=== PATIENT | female | born 1970 | race Caucasian/White ===

== ENCOUNTER 2022-02-06 00:29 | Day surgery (SDC) | payer BC, SELFPAY ==
[2022-01-19 13:49] VITALS: BMI 48.4
[2022-02-06 08:56] VITALS: BP 147/82; PULSE 88; RESP 18; TEMP 36.4; O2SAT 100
[2022-02-06] MEDS: LACTATED RINGERS 1,000 ML 150 ML IV CONT (09:09)
--- NOTE | 2022-02-06 09:13 | PM.HPGS ---
History of Present Illness History of Present Illness Consent: Risks, benefits, and alternatives have been discussed and questions answered. Patient agrees to proceed with procedure. Chief complaint: neoplasm screening Narrative: Deb Parnell is a 51 year old female referred for colon cancer screening. Review of Systems Review of Systems: All systems reviewed & are unremarkable except as noted in HPI and below PMFSH Past Medical History Medical History Kidney stones Surgical History Surgical History H/O gastric bypass History of cholecystectomy History of lithotripsy Family History Family History Other Cancer Diabetes mellitus Heart disease Hypertension Tuberculosis Social History Social History Smoking status: Former smoker Alcohol intake: current Alcohol use details: Rarely Living arrangements: with family Spiritual care concerns: No Meds Home Medications and Allergies Home Medications Medication Instructions Recorded Confirmed Type No Home Medications 01/05/22 02/06/22 History Allergies Allergy/AdvReac Type Severity Reaction Status Date / Time No Known Allergies Allergy Verified 02/06/22 08:55 Vital Signs Vital Signs - 24 hr 02/06/22 08:56 Temperature 36.4 C Pulse Rate 88 Respiratory Rate 18 Blood Pressure 147/82 H Pulse Oximetry 100 Oxygen Delivery Room Air Exam Const: General: alert Orientation/consciousness: patient oriented x3 Resp: Auscultation: clear to auscultation bilaterally Cardio: Rhythm: regular rhythm GI: GI Palp: Yes Soft to palpation and No Tenderness to palpation present (GI) Neuro: General: patient oriented x3 Assessment and Plan Assessment and plan (1) Colon cancer screening: Code(s): Z12.11 - Encounter for screening for malignant neoplasm of colon Status: Acute Assessment and Plan: Colonoscopy with possible biopsy or polypectomy or cautery or injection of substances.
--- NOTE | 2022-02-06 09:50 | WPDANESEPPF ---
Anes - Initial Pre Proc Eval Procedure: Operation Date: 02/06/22 10:00 Proposed Procedures p Screening Colonoscopy - Twan Giron MD Date/Time: 02/06/22 09:50 Surgeon: Twan Giron MD Pre Op Diagnosis: neoplasm screening Patient Data Age: 51 Gender: F Height: 1.65 m Weight: 129.3 kg Last Vital Signs Temp 97.6 F 02/06/22 08:56 Pulse 88 02/06/22 08:56 Resp 18 02/06/22 08:56 BP 147/82 H 02/06/22 08:56 Pulse Ox 100 02/06/22 08:56 O2 Del Method Room Air 02/06/22 08:56 Allergies Allergy/AdvReac Type Severity Reaction Status Date / Time No Known Allergies Allergy Verified 02/06/22 08:55 Home Medications Medication Instructions Recorded Confirmed Type No Home Medications 01/05/22 02/06/22 History Patient hx anesthesia problems: none Family hx anesthesia problems: none Results Review: All pre-operative results and documents have been reviewed as part of the pre-operative evaluation. [facility] Past Medical History Medical History Kidney stones Surgical History Surgical History H/O gastric bypass History of cholecystectomy History of lithotripsy Family History Family History Other Cancer Diabetes mellitus Heart disease Hypertension Tuberculosis Social History Social History Smoking status: Former smoker Alcohol intake: current Alcohol use details: Rarely Living arrangements: with family Spiritual care concerns: No Anes - Eval Final PreProcedure Day of Procedure 02/06/22 09:50 Patient weight: obese Heart: regular rate and rhythm Lungs: clear to auscultation Airway: Mallampati scale class II Neurological: alert and oriented Last oral intake: >/= 8 hours ASA classification: III Emergent: no Anesthetic plan: proceed Anesthesia type and monitoring: general GIVS and standard monitoring Results Review: All pre-operative results and documents have been reviewed as part of the pre-operative evaluation. Informed Consent: The patient's anesthetic plan and its attendant risks and benefits were discussed with the patient/family/POA. Questions were solicited and answers provided to the satisfaction of the patient/family/POA.
[2022-02-06 10:13] VITALS: BP 122/79; PULSE 80; RESP 16; O2SAT 100
[2022-02-06 10:23] VITALS: BP 125/83; PULSE 79; RESP 15; O2SAT 100
[2022-02-06 10:33] VITALS: BP 146/90; PULSE 80; RESP 18; O2SAT 100
== END 2022-02-06 10:47 | disposition home or self-care (01) ==
PROVIDERS: PCP Nurse Practitioner Family; Visit Provider Internal Medicine Gastroenterology
PROC: 0DJD8ZZ Inspection of Lower Intestinal Tract, Via Natural or Artificial Opening Endoscopic (ICD-10-PCS; CPT 45378; principal; 2022-02-06 10:00)
DX: Z12.11 Encounter for screening for malignant neoplasm of colon (principal); Z80.0 Family history of malignant neoplasm of digestive organs; Z98.84 Bariatric surgery status; Z87.891 Personal history of nicotine dependence
CPT/HCPCS: 45378; J2704; J7120

== ENCOUNTER 2022-08-06 18:52 | Emergency (ER) | payer BC, SELFPAY ==
--- NOTE | 2022-08-06 18:55 | ED.EXTPRO ---
HPI - Extremity Problem General Chief complaint: Skin/Abscess/Foreign Body Stated complaint: Swelling Rt Forearm Time Seen by Provider: 08/06/22 19:00 Source: patient, RN notes reviewed and old records reviewed Mode of arrival: ambulatory Limitations: no limitations History of Present Illness HPI Narrative: 52-year-old female presents to the [facility] with swelling in she noted to the proximal right forearm approximately 15 minutes prior to arrival. Patient states that she was caring rocks today, while she was washing up noticed the swelling. Swelling is localized, bruise noted to the proximal aspect of the forearm. No swelling to the distal aspect. Full range of motion of the elbow and the wrist. Positive radial pulse, capillary refill under 2 seconds, sensation intact in all 5 fingers Onset (ago): minute(s) (15) Related Data Home Medications Medication Instructions Recorded Confirmed No Home Medications 01/05/22 08/06/22 Allergies Allergy/AdvReac Type Severity Reaction Status Date / Time No Known Allergies Allergy Verified 08/06/22 19:06 Review of Systems Review of Systems: All systems reviewed & are unremarkable except as noted in HPI and below Constitutional: Constitutional: Reports no additional constitutional complaints Eyes: Eyes: Reports no additional eye complaints ENT: Reports system reviewed and no additional complaints, except as documented Cardiovascular: Cardiovascular: Reports no additional cardiovascular complaints, Denies chest pain and Denies dyspnea Respiratory: Respiratory: Reports no additional respiratory complaints, Denies chest congestion, Denies cough and Denies dyspnea Gastrointestinal: Gastrointestinal: Reports no additional gastrointestinal complaints, Denies abdominal pain, Denies nausea and Denies vomiting Musculoskeletal: Musculoskeletal: Reports as per HPI Integumentary/Breasts: Skin/Breast: Reports system reviewed and no additional complaints, except as docu Neurologic: Reports system reviewed and no additional complaints, except as documented Psychiatric: Psychiatric: Reports no additional psychiatric complaints Allergic/Immunologic: Allergic/Immunologic: Reports no additional allergic/immunologic complaints PMFSH Past Medical History Medical History Kidney stones Surgical History Surgical History H/O gastric bypass History of cholecystectomy History of lithotripsy Family History Family History Other Cancer Diabetes mellitus Heart disease Hypertension Tuberculosis Social History Social History Smoking status: Former smoker Alcohol intake: current Alcohol use details: Rarely Living arrangements: with family Spiritual care concerns: No Comments At the time of my signature, I reviewed and agree with the nursing past medical, surgical, social, and family history. There is no relevant family history pertinent to the patient complaint. Exam Const: General: cooperative, healthy appearing, comfortable, no acute distress, well developed, alert and well nourished Nutritional Appearance: well nourished Orientation/consciousness: patient oriented x3 Limitations: no limitations HENMT: Head: normal to inspection Ears: hearing grossly normal bilaterally and external ears normal Face/Nose/Sinus: Normal external nose present, Normal nares present, Normal nasal mucous membranes and turbinates present and normal facial exam Face and sinus: normal facial exam Mouth: Yes Normal oral and palatal mucosa present, Yes lip normal and Yes moist mucous membranes Eyes: General: appearance normal, both eyes and all related structures Alignment and Position: alignment normal Periorbital: periorbital findings normal Conjunctivae: conjunctivae n
[2022-08-06 18:59] VITALS: BP 151/87; PULSE 106; RESP 16; TEMP 36.3; O2SAT 100
== END 2022-08-06 19:15 | disposition home or self-care (01) ==
PROVIDERS: Emergency Provider Nurse Practitioner; PCP Nurse Practitioner Family
DX: S50.11XA Contusion of right forearm, initial encounter (principal); X58.XXXA Exposure to other specified factors, initial encounter; Z98.84 Bariatric surgery status; Z87.891 Personal history of nicotine dependence
CPT/HCPCS: 99211; G0463

== ENCOUNTER 2022-08-27 15:25 | Outpatient (CLI) | payer BC, SELFPAY ==
--- NOTE | ~2022-08-27 | CT_ITS ---
EXAMINATION: CT abdomen pelvis w con DATE: 08/27/2022 15:53 INDICATION: Kidney calculus TECHNIQUE: Computed tomography (CT) of the abdomen and pelvis was performed without intravenous contr ast. Automated exposure control and iterative reconstruction technique were employed. Exam dose: 151 3.64 mGy-cm total exam DLP. COMPARISON: None. FINDINGS: There is an approximately 4 mm groundglass opacity in the right lower lobe (series 4 image 5). Normal heart size. No pericardial or pleural effusion. Status post cholecystectomy. No hepatic, splenic, pancreatic, and adrenal or renal space-occupying mass lesion is evident on this limited noncontrast examination. There is an approximately 5.4 x 7.4 mm calcification of the mid left kidney with overlying prominent left renal cortical scar. There is a pinpoint nonobstructing lower pole left renal calculus. No other urinary tract calculus or hydroureteronephrosis is evident. The urinary bladder, uterus and adnexal areas are unremarkable. Normal caliber of the abdominal aorta. No intraperitoneal or retroperitoneal or pelvic mass lesion or adenopathy or ascites. Small sliding hiatal hernia. Status post gastric bypass surgery. No bowel obstruction, bowel wall thickening, pneumatosis or intraperitoneal free air. The appendix is not identified; there is no evidence of inflammatory change in the right lower quadrant. Prominent degenerative disc disease at L4-5 and L5-S1. There is degenerative spurring of the lower th oracic spine. No suspicious osteolytic or osteoblastic lesions are noted. IMPRESSION: Prominent mid left renal calcification with overlying prominent left renal cortical scar Pinpoint nonobstructing lower pole left renal calculus No ureteral calculus or hydroureteronephrosis on either side Small sliding hiatal hernia Status post gastric bypass surgery Status post cholecystectomy Reviewed, dictated and finalized at [facility]. Reviewed, dictated and finalized at [facility]. IMPRESSION: Prominent mid left renal calcification with overlying prominent le ft renal cortical scar Pinpoint nonobstructing lower pole left renal calculus No ureteral calculus or hydroureteronephrosis on either side Small sliding hiatal hernia Status post gastric bypass surgery Status post cholecystectomy
[2022-08-27 15:45] LABS: Estimated Glomerular Filt Rate > 60
== END 2022-08-27 15:26 | disposition home or self-care (01) ==
PROVIDERS: PCP Nurse Practitioner Family; Visit Provider Nurse Practitioner Family
DX: N20.0 Calculus of kidney (principal); K44.9 Diaphragmatic hernia without obstruction or gangrene; Z90.49 Acquired absence of other specified parts of digestive tract; Z98.84 Bariatric surgery status
CPT/HCPCS: 74177; Q9967

== ENCOUNTER 2022-09-03 14:42 | Outpatient (CLI) | payer BC, SELFPAY ==
--- NOTE | ~2022-09-03 | XR_ITS ---
EXAMINATION: XR abdomen/kub 1V DATE: 09/03/2022 15:02 INDICATION: Calcium kidney stone, left-sided. TECHNIQUE: A supine view of the abdomen on 2 radiographs was obtained. COMPARISON: CT abdomen and pelvis 08/27/2022 FINDINGS: There are no dilated loops of bowel. Surgical clips in the right upper quadrant are likely from cholecystectomy. There are staple lines from gastric bypass procedure. There are phleboliths in the pelvis. There are two 4 mm stones in left kidney. IMPRESSION: 1. Left kidney stones. Reviewed, dictated and finalized at location [facility]. IMPRESSION: 1. Left kidney stones.
== END 2022-09-03 14:43 | disposition home or self-care (01) ==
PROVIDERS: PCP Nurse Practitioner Family
DX: N20.0 Calculus of kidney (principal)
CPT/HCPCS: 74018

== ENCOUNTER 2022-09-25 09:49 | Outpatient (CLI) | payer BC, SELFPAY ==
--- NOTE | ~2022-09-25 | CT_ITS ---
EXAMINATION: CT diagnostic chest wo con DATE: 09/25/2022 10:09 INDICATION: Abnormal findings on diagnostic imaging TECHNIQUE: Computed tomography (CT) of the chest was performed without intravenous contrast. The dose -length product was 588.99 mGy-cm. Automated exposure control and iterative reconstruction technique were employed. COMPARISON: CT abdomen dated 08/27/2022 FINDINGS: No thoracic lymphadenopathy. Heart size normal. Status post cholecystectomy. There are godwin ges of gastric bypass surgery. No endobronchial lesions. There is a 4 mm right lower lobe nodule, unc hanged, image 69. No pneumothorax. No endobronchial lesion. No additional pulmonary nodules or masses . Mild thoracic spondylosis. No focal lytic or blastic lesions. No significant pleural or pericardial effusion. IMPRESSION: 1. Right lower lobe nodule measuring 4 mm, most likely benign. Consider follow-up low dose CT chest i n 12 months. Reviewed, dictated and finalized at location [facility]. IMPRESSION: 1. Right lower lobe nodule measuring 4 mm, most likely benign. Consider follow- up low dose CT chest in 12 months.
== END 2022-09-25 09:50 | disposition home or self-care (01) ==
PROVIDERS: PCP Nurse Practitioner Family; Visit Provider Nurse Practitioner
DX: R91.8 Other nonspecific abnormal finding of lung field (principal); R91.1 Solitary pulmonary nodule
CPT/HCPCS: 71250

== ENCOUNTER 2022-10-01 23:03 | Emergency (ER) | payer BC, SELFPAY ==
--- NOTE | ~2022-10-01 | XR_ITS ---
EXAMINATION: XR chest 1V portable INDICATION: Epigastric abdominal pain TECHNIQUE: Portable AP chest at 2338 hours COMPARISON: None available FINDINGS: The lungs are free of acute opacities. No pleural effusion or pneumothorax. The cardiomedia stinal silhouette is normal. IMPRESSION: 1. No acute cardiopulmonary abnormality. Reviewed, dictated and finalized at location [facility].
[2022-10-01 23:04] VITALS: BP 149/106; PULSE 120; RESP 20; TEMP 36.6; O2SAT 99
--- NOTE | 2022-10-01 23:20 | ECG_ITS ---
Measurements Intervals [place] Rate: 101 P: 35 NE: 196 QRS: -9 QRSD: 92 T: 30 QT: 327 QTc: 424 Interpretive Statements SINUS TACHYCARDIA DELAYED PRECORDIAL R/S TRANSITION BORDERLINE ECG NO PREVIOUS ECG AVAILABLE FOR COMPARISON Electronically Signed On 10-02-2022 6:36:08 CDT by Rafael Schmidt D.O.
[2022-10-01] MEDS: SODIUM CHLORIDE 0.9% IV 2,000 ML 999 ML IV CONT (23:29)
[2022-10-01] MEDS: ONDANSETRON INJ 4 MG/2 ML VIAL IV PUSH (23:30)
[2022-10-01] MEDS: HYDROmorphone HCL INJ (*CRX) 1 MG/ML SYR 0.5 MG IV PUSH (23:34)
[2022-10-01 23:35] LABS: Basophils Percent Auto 0.4 % (0.2-1.2); Eosinophils Absolute Auto 0.3 K/mm3 (0-0.3); Eosinophils Percent Auto 4.1 % (0-4.4); Hemoglobin 14.5 g/dL (12.0-15.0); Immature Granulocyte Absolute 0.01 K/mm3 (0.00-0.031); Immature Granulocyte Percent A 0.1 % (0-0.5); Lymphocytes Absolute Auto 3.06 K/mm3 (0.9-3.2); Lymphocytes Percent Auto 41.4 % (18.3-44.2); Mean Corpuscular Hemoglobin 31.3 pg (26-34); Mean Platelet Volume 9.2 fl (7.4-10.4); Monocytes Absolute Auto 0.6 K/mm3 (0.1-0.6); Monocytes Percent Auto 7.4 % (2.6-8.5); Neutrophils Absolute Auto 3.5 K/mm3 (1.3-6.7); Neutrophils Percent Auto 46.6 % (45.5-73.1); Platelet Count Result 271 k/mm3 (150-375); Red Blood Count 4.63 M/mm3 (4.2-5.4); Red Cell Distribution Width 12.1 % (11.5-14.5); White Blood Count 7.4 K/mm3 (4.5-10.0)
--- NOTE | 2022-10-01 23:40 | ED.GENADULT ---
HPI - General Adult General Chief complaint: Abdominal Pain Stated complaint: abd pain Time Seen by Provider: 10/01/22 23:09 History of Present Illness HPI narrative: This is a 52-year-old female presenting ED with chief complaint of epigastric pain. Started 830 after she ate dinner. It is a burning pain that is nonradiating, 8/10 intensity and improving. She has full says this feels like when she had her gallbladder attacks in the past although since then she has had a cholecystectomy. She took some Tums with moderate relief. She did have an episode of nausea and vomiting that was nonbloody nonbilious. No fevers chills. She had some diarrhea but that is normal for her. No urinary symptoms. She has recently been put on Prilosec for gastritis Related Data Home Medications Medication Instructions Recorded Confirmed famotidine 40 mg tablet 40 mg PO DAILY 09/29/22 09/29/22 losartan 50 mg tablet 50 mg PO DAILY 09/29/22 09/29/22 Allergies Allergy/AdvReac Type Severity Reaction Status Date / Time No Known Allergies Allergy Verified 10/01/22 23:03 [facility] Past Medical History Medical History Kidney stones Surgical History Surgical History H/O gastric bypass History of cholecystectomy History of lithotripsy Family History Family History Other Cancer Diabetes mellitus Heart disease Hypertension Tuberculosis Social History Social History Smoking status: Never smoker Alcohol intake: current Alcohol use details: Rarely Living arrangements: with family Spiritual care concerns: No Exam Narrative: APPEARANCE: No apparent distress. Head: atraumatic. EYES: EOMI, NOSE: Atraumatic NECK: Trachea midline RESPIRATORY: No increased rate of breathing CARDIOVASCULAR: RRR, ABDOMINAL: obese, with tenderness in the epigastric area but no guarding or rebound. The rest the abdomen is nontender. MUSCULOSKELETAl: No obvious deformities NEURO: Alert. Moving 4/4 extremities SKIN:: Warm, dry. Normal color PSYCHIATRIC: Normal affect Course Vital Signs Vital signs: Vital Signs Temperature 97.9 F 10/01/22 23:04 Pulse Rate 120 H 10/01/22 23:04 Respiratory Rate 20 10/01/22 23:04 Blood Pressure 149/106 H 10/01/22 23:04 Pulse Oximetry 99 10/01/22 23:04 Oxygen Delivery Room Air 10/01/22 23:04 Temperature 97.9 F 10/01/22 23:04 Pulse Rate 87 10/02/22 02:09 Respiratory Rate 17 10/02/22 02:09 Blood Pressure 131/85 10/02/22 02:09 Pulse Oximetry 97 10/02/22 02:09 Oxygen Delivery Room Air 10/01/22 23:04 Medical Decision Making MDM Narrative Medical decision making narrative: -Presentation: 52-year-old female presenting with epigastric pain. Patient has recently had multiple CT scans and is concerned about increasing amounts of radiation exposure. We agreed that we will get lab work and give her symptomatic treatment and reassess. If her pain and vital signs improved we will forego the CT scan. chest x-ray EKG abdominal and cardiac labs ordered. Patient given Pepcid, 2 L of fluid and Maalox. 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 Metabolic panel normal. Troponins negative x2. Urine not indicative of infection. Chest x-ray unremarkable. Independent EKG interpretation: Rhythm [sinus], Rate [101], [place] -[normal], [place] -[normal], QRS [narrow], QTC [normal], T waves
[2022-10-01 23:43] LABS: Glucose Point of Care 102 mg/dl (65-105)
[2022-10-01 23:43] LABS: Lactic Acid Reflex 1.3 mmol/L (0.7-2.0)
[2022-10-01 23:44] LABS: Alanine Aminotransferase 34 U/L (6-35); Albumin Level 4.8 g/dL (3.5-5.1); Alkaline Phosphatase 122 U/L (38-126); Anion Gap 7 mmol/L (8-16); Aspartate Amino Transferase 28 U/L (14-36); Bilirubin,Total 0.5 mg/dL (0.2-1.3); Blood Urea Nitrogen 16 mg/dL (7-17); Calcium 9.6 mg/dL (8.4-10.2); Carbon Dioxide 30 mmol/L (22-30); Chloride 103 mmol/L (98-107); Estimated CRCL calculation 98 ml/min; Estimated Glomerular Filt Rate > 60; Glucose 117 mg/dL (65-110); Lipase 97 U/L (23-300); Magnesium 2.2 mg/dL (1.6-2.3); Potassium 4.2 mmol/L (3.4-5.0); Sodium 140 mmol/L (137-145)
[2022-10-01 23:46] LABS: INR 0.9; Prothrombin Time 12.9 Seconds (11.1-14.7)
[2022-10-01 23:47] LABS: Partial Thromboplastin Time 28.8 SECONDS (22.3-36.8)
[2022-10-01] MEDS: FAMOTIDINE 20 MG/2 ML VIAL IV PUSH (23:49)
[2022-10-01] MEDS: MAG HYDROX/AL HYDROX/SIMETH 30 ML UDC PO (23:52)
[2022-10-01 23:55] LABS: Troponin I < 0.012 ng/mL (0.000-0.034)
[2022-10-02] LABS: Appearance Urine Clear (Clear); Bilirubin Urine Negative (Negative); Blood Urine Negative (Negative); Color Urine Yellow (Yellow); Glucose Urine UA Negative (Negative); Ketones Urine Negative (Negative); Leukocyte Esterase Ur Negative LEU/UL (Negative); Nitrate Urine Negative (Negative); Protein Urine Negative (Negative); Specific Grav Ur 1.003 (1.001-1.035); Urobilinogen Urine 0.2 mg/dL (<2.0)
[2022-10-02 00:14] LABS: Add Urine Microscopic? NO
[2022-10-02 02:09] VITALS: BP 131/85; PULSE 87; RESP 17; O2SAT 97
[2022-10-02 03:25] LABS: Troponin I < 0.012 ng/mL (0.000-0.034)
== END 2022-10-02 03:55 | disposition home or self-care (01) ==
PROVIDERS: Emergency Provider Emergency Medicine; PCP Nurse Practitioner Family
DX: K29.70 Gastritis, unspecified, without bleeding (principal); Z87.442 Personal history of urinary calculi; Z98.84 Bariatric surgery status; Z90.49 Acquired absence of other specified parts of digestive tract; R00.0 Tachycardia, unspecified
CPT/HCPCS: 36415; 71045; 80053; 81003; 82948; 83605; 83690; 83735; 84484; 85025; 85610; 85730; 93005; 96361; 96374; 96375; 99284; A9270; J1170; J2405; J7030

== ENCOUNTER 2022-10-02 12:05 | Outpatient (CLI) | payer BC, SELFPAY | END 2022-10-02 12:06 | disposition home or self-care (01) | PROVIDERS: PCP Nurse Practitioner Family; Visit Provider Urology | DX: Z01.818 Encounter for other preprocedural examination (principal); N20.0 Calculus of kidney | CPT/HCPCS: 87086; 87088 ==

== ENCOUNTER 2022-10-06 08:10 | Outpatient (CLI) | payer BC, SELFPAY ==
[2022-10-06 08:59] LABS: Basophils Percent Auto 0.4 % (0.2-1.2); Eosinophils Absolute Auto 0.3 K/mm3 (0-0.3); Eosinophils Percent Auto 5.2 % (0-4.4); Hematocrit 40.9 % (37.0-47.0); Hemoglobin 13.8 g/dL (12.0-15.0); Immature Granulocyte Absolute 0.03 K/mm3 (0.00-0.031); Immature Granulocyte Percent A 0.6 % (0-0.5); Lymphocytes Absolute Auto 1.94 K/mm3 (0.9-3.2); Lymphocytes Percent Auto 37.5 % (18.3-44.2); Mean Corpuscular HGB Conc 33.7 g/dl (32-36); Mean Corpuscular Hemoglobin 31.7 pg (26-34); Mean Platelet Volume 9.3 fl (7.4-10.4); Monocytes Absolute Auto 0.4 K/mm3 (0.1-0.6); Monocytes Percent Auto 7.7 % (2.6-8.5); Neutrophils Absolute Auto 2.5 K/mm3 (1.3-6.7); Neutrophils Percent Auto 48.6 % (45.5-73.1); Platelet Count Result 235 k/mm3 (150-375); Red Blood Count 4.35 M/mm3 (4.2-5.4); Red Cell Distribution Width 12.2 % (11.5-14.5); White Blood Count 5.2 K/mm3 (4.5-10.0)
[2022-10-06 09:06] LABS: Alanine Aminotransferase 30 U/L (6-35); Albumin Level 4.2 g/dL (3.5-5.1); Alkaline Phosphatase 97 U/L (38-126); Anion Gap 5 mmol/L (8-16); Aspartate Amino Transferase 27 U/L (14-36); Bilirubin,Total 0.6 mg/dL (0.2-1.3); Blood Urea Nitrogen 18 mg/dL (7-17); Calcium 8.9 mg/dL (8.4-10.2); Carbon Dioxide 29 mmol/L (22-30); Chloride 105 mmol/L (98-107); Cholesterol 208 mg/dL (0-200); Estimated Glomerular Filt Rate > 60; Glucose 98 mg/dL (65-110); HDL Direct 51 mg/dL; Magnesium 2.1 mg/dL (1.6-2.3); Potassium 3.7 mmol/L (3.4-5.0); Sodium 139 mmol/L (137-145); Triglycerides 169 mg/dL (<150)
[2022-10-06 09:18] LABS: Hemoglobin A1C 5.3 % (<5.7); Iron 122 ug/dL (37-170); LDL Cholesterol Direct 121 mg/dL
[2022-10-06 09:26] LABS: Percent Iron Saturation 30 % (20-50)
[2022-10-06 10:13] LABS: Folic Acid > 20.0 ng/mL (2.76->20)
== END 2022-10-06 08:11 | disposition home or self-care (01) ==
LOC: ANHLAB 08:10
PROVIDERS: PCP Nurse Practitioner Family; Visit Provider Nurse Practitioner Family
DX: E88.42 MERRF syndrome (principal); D50.9 Iron deficiency anemia, unspecified; E53.8 Deficiency of other specified B group vitamins; I10 Essential (primary) hypertension; Z13.1 Encounter for screening for diabetes mellitus; Z13.220 Encounter for screening for lipoid disorders; Z13.29 Encounter for screening for other suspected endocrine disorder
CPT/HCPCS: 36415; 80053; 80061; 82607; 82728; 82746; 83036; 83540; 83550; 83735; 84443; 85025

== ENCOUNTER 2022-10-09 00:11 | Day surgery (SDC) | payer BC, SELFPAY ==
[2022-09-29 08:17] VITALS: BMI 49.2
--- NOTE | 2022-09-29 08:50 | SUR.PREOP ---
Report to the Outpatient Waiting Room, entrance under the green pavilion located off [facility], at time 0600 on date 10/09/22. Planned Procedure Time: 0730. Time changes happen often and if your time is changed the preop area will call you the afternoon before. - You and your visitor will be asked to self-screen and do not enter if you have any COVID symptoms. - A mask is optional within the hospital at this time. Patients may have clear liquids (water, carbonated beverages, clear teas, apple juice) until 3 hours prior to surgery with a maximum of 20 ounces. - No food from midnight until time of surgery - Infants may have breast milk until 4 hours before surgery, infant formula 6 hours prior to surgery. - Children will be allowed to drink immediately following surgery. If applicable, please bring a bottle or sippy cup to assist with drinking. Juice, water, soda, and popsicles are readily available. For infants on formula, please bring formula the day of surgery. Pacifiers are allowed. Take the following medications with a SIP of water the morning of surgery: N/A DO NOT STOP ANY OF YOUR OTHER PRESCRIPTION MEDICATIONS PRIOR TO SURGERY ?EXCEPT THE FOLLOWING Medications to discontinue per physician N/A Date to take last dose N/A Please no make-up, nail welsh, hairspray, perfume, deodorant, or body powder the day of surgery. No jewelry (including any body piercings) or valuables the day of surgery, leave them at home. Please take a shower or bath the night before, or the morning of, surgery with an antibacterial soap. Wear comfortable, loose fitting clothing. Children are encouraged to wear pajamas. - Jewelry must be removed prior to entering the operating room. Rings and piercings that are not removed may be cut off. - The hospital will not accept responsibility for valuables. - Please leave all valuables, including medications, at home the day of surgery. If you are going home after surgery, a licensed line haul driver must drive you home. - NO public transportation without another adult if you receive anesthesia. - We recommend that an adult stay with you for 24 hours following discharge. - We also recommend that you do not drive, make important decision, drink alcoholic beverages, or take any drugs that were not prescribed by your health care provider for at least 24 hours after your discharge time. For Pediatric surgeries, we recommend two adults accompany the child home. Follow any additional instructions given to you from your surgeon. If you or anyone in your household have experienced Covid symptoms in the past week, please notify your surgeon or the nurse liaison at the phone number below for possible testing. Telephone instructions given to JORGE ALBERTO GOMEZ and asked if any additional questions and then verbalized understanding. Patient advised to call surgeon office or pre surgery nurse liaison [phone] if any additional questions.
--- NOTE | ~2022-10-09 | XR_ITS ---
Supine and upright views of the abdomen Clinical history: Lithotripsy COMPARISON: 09/03/2022 Findings: Bowel gas pattern is nonspecific. No evidence for obstruction or free air. Cholecystectomy clips are present. Suspected small left renal stones measuring up to 4 mm. Osseous structures are int act. Impression: Suspected small left renal stones measuring up to 4 mm. Reviewed, dictated and finalized at [facility]. Impression: Suspected small left renal stones measuring up to 4 mm.
[2022-10-09 06:30] VITALS: BP 126/75; PULSE 92; RESP 16; TEMP 36.5; O2SAT 97
--- NOTE | 2022-10-09 06:33 | WPDHPUPDATE1 ---
History and Physical Update Update Date/Time: 10/09/22 06:33 History and Physical has been reviewed, including an updated exam of the patient. There are NO changes in the patient's condition. Risks, benefits, and alternatives have been discussed and questions answered. Patient agrees to proceed with procedure.
--- NOTE | 2022-10-09 07:51 | P.PNAN_ITS ---
Anes - Initial Pre Proc Eval Procedure: Operation Date: 10/09/22 07:30 Proposed Procedures p Left Extracorporeal Shock Wave Lithotripsy - Juan Antonio Covington MD Date/Time: 10/09/22 07:51 Surgeon: Juan Antonio Covington MD Pre Op Diagnosis: left kidney stone Patient Data Age: 52 Gender: F Height: 1.65 m Weight: 137.2 kg Allergies Allergy/AdvReac Type Severity Reaction Status Date / Time No Known Allergies Allergy Verified 10/09/22 07:16 Home Medications Medication Instructions Recorded Confirmed Type famotidine 40 mg tablet 40 mg PO DAILY 09/29/22 10/09/22 History losartan 50 mg tablet 50 mg PO DAILY 09/29/22 10/09/22 History aluminum-mag hydroxide-simethicone 10 ml PO QID PRN dyspepsia #355 mL 10/02/22 10/09/22 Rx 200 mg-200 mg-20 mg/5 mL oral susp (Maalox Advanced) ondansetron 4 mg disintegrating 4 mg PO Q8H PRN nausea and 10/02/22 10/09/22 Rx tablet vomiting #30 tabs Patient hx anesthesia problems: none Family hx anesthesia problems: none Results Review: All pre-operative results and documents have been reviewed as part of the pre- operative evaluation. [facility] Past Medical History Medical History Kidney stones Surgical History Surgical History H/O gastric bypass History of cholecystectomy History of lithotripsy Family History Family History Other Cancer Diabetes mellitus Heart disease Hypertension Tuberculosis Social History Social History Smoking status: Never smoker Alcohol intake: current Alcohol use details: Rarely Living arrangements: with family Spiritual care concerns: No Anes - Eval Final PreProcedure Day of Procedure 10/09/22 07:51 Patient weight: super morbidly obese Heart: regular rate and rhythm Lungs: clear to auscultation Airway: Mallampati scale class III Neurological: alert and oriented Last oral intake: >/= 8 hours ASA classification: III Emergent: no Anesthetic plan: proceed Anesthesia type and monitoring: general LMA and standard monitoring Results Review: All pre-operative results and documents have been reviewed as part of the pre- operative evaluation. Informed Consent: The patient's anesthetic plan and its attendant risks and benefits were discussed with the patient/family/POA. Questions were solicited and answers provided to the satisfaction of the patient/family/POA.
[2022-10-09] MEDS: LACTATED RINGERS 1,000 ML 30 ML IV CONT (07:54)
[2022-10-09] MEDS: ceFAZolin 3 GM/D5W 100 ML 100 ML IVPB (08:07)
--- NOTE | 2022-10-09 08:13 | W.PM.PROC2 ---
Procedure Note - Detailed Date of Procedure 10/09/22 Pre-op Diagnosis Left kidney stones Post-op Diagnosis Same Procedure Performed Left ESWL Surgeon Juan Antonio Covington MD Anesthesia General Description of Procedure The patient was brought to the operative suite where she was placed in the supine position on the Dornier lithotripsy table. The focal point of the lithotripter was placed at two contiguous 4mm left renal calculi. A total of 2500 shocks were delivered at a power setting of 4. There appeared to be good fragmentation of the stone. The patient tolerated the procedure well and was taken to the recovery room in good condition.
--- NOTE | 2022-10-09 08:15 | SUR.PREOP ---
6926 pt informed delay in procedure
[2022-10-09 08:52] VITALS: BP 147/92; PULSE 94; RESP 15; TEMP 36.4; O2SAT 100
[2022-10-09 09:05] VITALS: BP 123/93; PULSE 69; RESP 12; O2SAT 100
[2022-10-09 09:20] VITALS: BP 120/96; PULSE 73; RESP 12; O2SAT 100
[2022-10-09 09:24] VITALS: BP 115/74; PULSE 66; RESP 15
[2022-10-09] MEDS: oxyCODONE HCL (*CRX) 5 MG TAB IR PO (09:35)
[2022-10-09 10:00] VITALS: BP 117/78; PULSE 76; RESP 14
== END 2022-10-09 10:16 | disposition home or self-care (01) ==
PROVIDERS: PCP Nurse Practitioner Family; Visit Provider Urology
PROC: (CPT 50590; principal; 2022-10-09 07:30)
DX: N20.0 Calculus of kidney (principal); Z98.84 Bariatric surgery status; E66.01 Morbid (severe) obesity due to excess calories; Z68.43 Body mass index [BMI] 50.0-59.9, adult
CPT/HCPCS: 50590; 74018; A9270; J0690; J1100; J2250; J2405; J2704; J3010; J7120

== ENCOUNTER 2022-10-26 08:58 | Outpatient (CLI) | payer BC, SELFPAY ==
--- NOTE | ~2022-10-26 | XR_ITS ---
Supine and upright views of the abdomen Clinical history: Renal stone COMPARISON: 10/09/2022 Findings: Bowel gas pattern is nonspecific. No evidence for obstruction or free air. No abnormal mass lesion or calcification is seen. Osseous structures are intact. Impression: No definite renal stones identified. Reviewed, dictated and finalized at [facility]. Impression: No definite renal stones identified.
== END 2022-10-26 08:59 | disposition home or self-care (01) ==
PROVIDERS: PCP Nurse Practitioner Family; Visit Provider Urology
DX: N20.0 Calculus of kidney (principal)
CPT/HCPCS: 74018

== ENCOUNTER 2022-11-20 00:11 | Day surgery (SDC) | payer BC, SELFPAY ==
[2022-11-09 10:55] VITALS: BMI 48.6
--- NOTE | 2022-11-19 11:37 | P.HP_ITS ---
History of Present Illness History of Present Illness Consent: Risks, benefits, and alternatives have been discussed and questions answered. Patient agrees to proceed with procedure. Chief complaint: Epigastric pain,Pain in thoracic spine,GERD Narrative: Deb Parnell is a 52 year old female With a history of a previous gastric bypass who has recently had a pain that was severe in the epigastric area. [place] like she was distended with a beach ball. She is having sharp pains in went to the emergency room where she was started on omeprazole and famotidine. Those pains have subsided. She had also been bothered by nausea which is also subsiding since she started taking omeprazole. Her weight is stable. She had a gastric bypass, [place], 8 years ago Review of Systems Review of Systems: All systems reviewed & are unremarkable except as noted in HPI and below PMFSH Past Medical History Medical History Epigastric pain GERD (gastroesophageal reflux disease) Kidney stones Right-sided thoracic back pain Surgical History Surgical History H/O gastric bypass History of cholecystectomy History of lithotripsy Family History Family History Other Cancer Diabetes mellitus Heart disease Hypertension Tuberculosis Social History Social History Smoking status: Former smoker Tobacco type: cigarettes Alcohol intake: current Alcohol use details: Rarely Substance use type: does not use Living arrangements: with family Spiritual care concerns: No Meds Home Medications and Allergies Home Medications Medication Instructions Recorded Confirmed Type losartan 50 mg tablet 50 mg PO DAILY 09/29/22 11/20/22 History omeprazole 40 mg capsule,delayed 40 mg PO DAILY 11/09/22 11/20/22 History release Allergies Allergy/AdvReac Type Severity Reaction Status Date / Time bee venom protein (honey bee) Allergy Anaphylaxis Verified 11/20/22 09:41 Exam Const: General: alert and obese Orientation/consciousness: patient oriented x3 Resp: Auscultation: clear to auscultation bilaterally Cardio: Rhythm: regular rhythm GI: GI Palp: Yes Soft to palpation and No Tenderness to palpation present (GI) Neuro: General: patient oriented x3 Assessment and Plan Assessment and plan (1) Epigastric pain: Code(s): R10.13 - Epigastric pain Status: Acute Assessment and Plan: EGD with possible biopsy or dilatation or cautery.
[2022-11-20 09:42] VITALS: BP 142/81; PULSE 83; RESP 16; TEMP 36.4; O2SAT 99
[2022-11-20] MEDS: LACTATED RINGERS 1,000 ML 150 ML IV CONT (09:50)
--- NOTE | 2022-11-20 10:09 | WPDANESEPPF ---
Anes - Initial Pre Proc Eval Procedure: Operation Date: 11/20/22 10:30 Proposed Procedures p Esophagogastroduodenoscopy - Twan Giron MD Date/Time: 11/20/22 10:09 Surgeon: Twan Giron MD Pre Op Diagnosis: Epigastric pain,Pain in thoracic spine,GERD Patient Data Age: 52 Gender: F Height: 1.65 m Weight: 131.3 kg Last Vital Signs Temp 97.5 F L 11/20/22 09:42 Pulse 83 11/20/22 09:42 Resp 16 11/20/22 09:42 BP 142/81 H 11/20/22 09:42 Pulse Ox 99 11/20/22 09:42 O2 Del Method Room Air 11/20/22 09:42 Allergies Allergy/AdvReac Type Severity Reaction Status Date / Time bee venom protein (honey bee) Allergy Anaphylaxis Verified 11/20/22 09:41 Home Medications Medication Instructions Recorded Confirmed Type losartan 50 mg tablet 50 mg PO DAILY 09/29/22 11/20/22 History omeprazole 40 mg capsule,delayed 40 mg PO DAILY 11/09/22 11/20/22 History release Patient hx anesthesia problems: none Family hx anesthesia problems: none Results Review: All pre-operative results and documents have been reviewed as part of the pre-operative evaluation. [facility] Past Medical History Medical History (Updated 10/19/22 @ 09:31 by Christy Michael APRN) Epigastric pain GERD (gastroesophageal reflux disease) Kidney stones Right-sided thoracic back pain Surgical History Surgical History H/O gastric bypass History of cholecystectomy History of lithotripsy Family History Family History Other Cancer Diabetes mellitus Heart disease Hypertension Tuberculosis Social History Social History Smoking status: Former smoker Tobacco type: cigarettes Alcohol intake: current Alcohol use details: Rarely Substance use type: does not use Living arrangements: with family Spiritual care concerns: No Anes - Eval Final PreProcedure Day of Procedure 11/20/22 10:09 Patient weight: morbidly obese Heart: regular rate and rhythm Lungs: clear to auscultation Airway: Mallampati scale class III Neurological: alert and oriented Last oral intake: >/= 8 hours ASA classification: III Emergent: no Anesthetic plan: proceed Anesthesia type and monitoring: general GIVS and standard monitoring Results Review: All pre-operative results and documents have been reviewed as part of the pre-operative evaluation. Informed Consent: The patient's anesthetic plan and its attendant risks and benefits were discussed with the patient/family/POA. Questions were solicited and answers provided to the satisfaction of the patient/family/POA.
[2022-11-20 10:39] VITALS: BP 107/70; PULSE 78; RESP 18; O2SAT 98
[2022-11-20 10:49] VITALS: BP 110/71; PULSE 68; RESP 18; O2SAT 100
[2022-11-20 10:59] VITALS: BP 107/70; PULSE 70; RESP 18; O2SAT 99
== END 2022-11-20 11:10 | disposition home or self-care (01) ==
PROVIDERS: PCP Nurse Practitioner Family; Visit Provider Internal Medicine Gastroenterology
PROC: 0DJ08ZZ Inspection of Upper Intestinal Tract, Via Natural or Artificial Opening Endoscopic (ICD-10-PCS; CPT 43235; principal; 2022-11-20 10:30)
DX: K21.9 Gastro-esophageal reflux disease without esophagitis (principal); Z98.84 Bariatric surgery status; Z87.891 Personal history of nicotine dependence; E66.01 Morbid (severe) obesity due to excess calories; Z68.42 Body mass index [BMI] 45.0-49.9, adult
CPT/HCPCS: 43235; J2704; J7120

== ENCOUNTER 2023-03-20 10:18 | Emergency (ER) | payer BC, SELFPAY ==
--- NOTE | ~2023-03-20 | XR_ITS ---
EXAMINATION: XR foot RT min 3V DATE: 03/20/2023 11:04 INDICATION: Right foot injury and pain. TECHNIQUE: 4 views of right foot were obtained. COMPARISON: None. FINDINGS: Bone alignment is normal. No fracture. There is mild osteoarthritis of first metatarsophala ngeal joint and some of the midfoot joints. There are enthesophytes at the posterior and plantar aspe cts of calcaneal tuberosity. There is dorsal foot soft tissue swelling. IMPRESSION: 1. Mild polyarticular osteoarthritis. Reviewed, dictated and finalized at location A. PICKER
[2023-03-20 10:56] VITALS: BP 127/87; PULSE 101; RESP 18; TEMP 36.4; O2SAT 99
--- NOTE | 2023-03-20 10:57 | ED.LOWEXIN ---
HPI - Extremity Injury (Lower) General Chief Complaint: Extremity Injury, Lower Stated Complaint: rt foot injury Time Seen by Provider: 03/20/23 10:55 Source: patient Mode of arrival: ambulatory Limitations: no limitations History of Present Illness HPI Narrative: Deb is a 52-year-old female patient presenting to the clinic today with complaints of right foot pain. She reports prior to arrival she dropped a concrete plantar on top of her right foot. Reports pain radiating to her right great toe and in the arch of her foot. Is unable to walk on her foot due to the pain. Related Data Home Medications Medication Instructions Recorded Confirmed losartan 50 mg tablet 50 mg PO DAILY 09/29/22 11/20/22 omeprazole 40 mg capsule,delayed 40 mg PO DAILY 11/09/22 11/20/22 release Allergies Allergy/AdvReac Type Severity Reaction Status Date / Time bee venom protein (honey bee) Allergy Anaphylaxis Verified 11/20/22 09:41 Review of Systems Review of Systems: Pertinent positives per HPI. Patient denies any fever, chills, rash, headache, visual changes, dizziness, cough, runny nose, sore throat, shortness of breath, chest pain, palpitations, nausea, vomiting, diarrhea, constipation, abdominal pain, or any urinary issues. PMFSH Past Medical History Medical History Epigastric pain GERD (gastroesophageal reflux disease) Kidney stones Right-sided thoracic back pain Surgical History Surgical History H/O gastric bypass History of cholecystectomy History of lithotripsy Family History Family History Other Cancer Diabetes mellitus Heart disease Hypertension Tuberculosis Social History Social History Smoking status: Former smoker Tobacco type: cigarettes Alcohol intake: current Alcohol use details: Rarely Substance use type: does not use Living arrangements: with family Spiritual care concerns: No Comments At the time of my signature, I reviewed and agree with the nursing past medical, surgical, social, and family history. There is no relevant family history pertinent to the patient complaint. Exam Narrative: General: Well-developed, well nourished, in no apparent distress Head: Normocephalic, atraumatic. Cardio: Regular rate and rhythm, s1 and s2 normal, no murmur appreciated. Resp: Clear to auscultation bilaterally, no rhonchi, rales, wheezing or rubs. Musculoskeletal: No deformity, swelling, bruising, and tender to palpation to the dorsal foot with pain radiating to the right great toe into the arch of the foot, limited range of motion to the right foot due to pain, muscle strength strong and equal, peripheral pulse strong, no cyanosis, sitting in a wheelchair Course Course Emergency Course: Portions of this record may have been created with voice recognition software. Level of Care: Express Care Visit Vital Signs Vital signs: Vital Signs Temperature 36.4 C 03/20/23 10:56 Pulse Rate 101 H 03/20/23 10:56 Respiratory Rate 18 03/20/23 10:56 Blood Pressure 127/87 03/20/23 10:56 Pulse Oximetry 99 03/20/23 10:56 Oxygen Delivery Room Air 03/20/23 10:56 Temperature 36.4 C 03/20/23 10:56 Pulse Rate 101 H 03/20/23 10:56 Respiratory Rate 18 03/20/23 10:56 Blood Pressure 127/87 03/20/23 10:56 Pulse Oximetry 99 03/20/23 10:56 Oxygen Delivery Room Air 03/20/23 10:56 Vital signs reviewed MDM - Extremity Injury (Lower) MDM Narrative Medical decision making narrative: At the time of visit patient is resting comfortably on the exam table. X-ray of the right foot was performed and was negative in the clinic today. I suspect patient has a left foot contusion/soft tissue swelling. Supportive measures were d
== END 2023-03-20 11:25 | disposition home or self-care (01) ==
PROVIDERS: Emergency Provider Nurse Practitioner Family; PCP Nurse Practitioner Family
DX: S90.31XA Contusion of right foot, initial encounter (principal); Z87.891 Personal history of nicotine dependence; W20.8XXA Other cause of strike by thrown, projected or falling object, initial encounter
CPT/HCPCS: 73630; 99213; G0463

== ENCOUNTER 2023-07-26 11:25 | Outpatient (CLI) | payer BC, SELFPAY ==
--- NOTE | ~2023-07-26 | XR_ITS ---
Cervical Spine: AP, lateral, open-mouth views Clinical History: Pain Findings: There is straightening of the normal cervical lordosis. No fracture or subluxation evident The intervertebral disc spaces are well maintained. Pre-vertebral soft tissues are unremarkable. Impression: Straightening of the normal cervical lordosis. Reviewed, dictated and finalized at [facility]. Impression: Straightening of the normal cervical lordosis.
== END 2023-07-26 11:26 | disposition home or self-care (01) ==
LOC: ANHIMG 11:26
PROVIDERS: PCP Nurse Practitioner Family; Visit Provider Internal Medicine
DX: M43.8X2 Other specified deforming dorsopathies, cervical region (principal); R91.1 Solitary pulmonary nodule; Z12.31 Encounter for screening mammogram for malignant neoplasm of breast; Z13.820 Encounter for screening for osteoporosis
CPT/HCPCS: 72040

== ENCOUNTER 2023-08-04 08:43 | Outpatient (CLI) | payer BC, SELFPAY ==
--- NOTE | ~2023-08-04 | CT_ITS ---
EXAMINATION:CT diagnostic chest wo con DATE: 08/04/2023 09:13 INDICATION: Nodule of lung. TECHNIQUE: Computed tomography (CT) of the chest was performed without intravenous contrast. Automate d exposure control and iterative reconstruction technique were employed. The dose-length product (DLP ) was 568.89 mGy-cm. COMPARISON: Chest CT 09/25/2022 FINDINGS: There is a stable 4 mm nodule in right lower lobe, likely benign. No pleural effusion. The heart size is normal. No pericardial effusion. There are coronary artery calcifications. There are almanza rgical changes of the stomach. There are changes of cholecystectomy. There is mild thoracic spondylos is. IMPRESSION: 1. Stable 4 mm pulmonary nodule, likely benign. Reviewed, dictated and finalized at location A.
[2023-08-04 09:31] LABS: Basophils Percent Auto 0.6 % (0.2-1.2); Eosinophils Absolute Auto 0.3 K/mm3 (0-0.3); Eosinophils Percent Auto 4.1 % (0-4.4); Hematocrit 43.4 % (37.0-47.0); Hemoglobin 14.1 g/dL (12.0-15.0); Immature Granulocyte Absolute 0.01 K/mm3 (0.00-0.031); Immature Granulocyte Percent A 0.2 % (0-0.5); Lymphocytes Absolute Auto 2.49 K/mm3 (0.9-3.2); Lymphocytes Percent Auto 39.4 % (18.3-44.2); Mean Corpuscular HGB Conc 32.5 g/dl (32-36); Mean Corpuscular Hemoglobin 31.4 pg (26-34); Mean Corpuscular Volume 96.7 fl (80-100); Mean Platelet Volume 9.6 fl (7.4-10.4); Monocytes Absolute Auto 0.4 K/mm3 (0.1-0.6); Monocytes Percent Auto 6.6 % (2.6-8.5); Neutrophils Absolute Auto 3.1 K/mm3 (1.3-6.7); Neutrophils Percent Auto 49.1 % (45.5-73.1); Platelet Count Result 238 k/mm3 (150-375); Red Blood Count 4.49 M/mm3 (4.2-5.4); Red Cell Distribution Width 12.6 % (11.5-14.5); White Blood Count 6.3 K/mm3 (4.5-10.0)
[2023-08-04 09:57] LABS: Alanine Aminotransferase 42 U/L (6-35); Albumin Level 4.4 g/dL (3.5-5.1); Alkaline Phosphatase 99 U/L (38-126); Anion Gap 7 mmol/L (4-12); Aspartate Amino Transferase 35 U/L (14-36); Bilirubin,Total 0.5 mg/dL (0.2-1.3); Blood Urea Nitrogen 14 mg/dL (7-17); Calcium 9.3 mg/dL (8.4-10.2); Carbon Dioxide 28 mmol/L (22-30); Chloride 103 mmol/L (98-107); Cholesterol 206 mg/dL (0-200); Estimated Glomerular Filt Rate > 60; Glucose 110 mg/dL (65-110); HDL Direct 49 mg/dL; Magnesium 2.2 mg/dL (1.6-2.3); Potassium 4.1 mmol/L (3.4-5.0); Sodium 138 mmol/L (137-145); Triglycerides 202 mg/dL (<150)
[2023-08-04 10:08] LABS: LDL Cholesterol Direct 116 mg/dL
[2023-08-04 10:22] LABS: Free T4 Free Thyroxine 1.08 ng/mL (0.78-2.19); Vitamin D 25 Hydroxy 90.7 ng/mL
[2023-08-04 10:58] LABS: Folic Acid > 20.0 ng/mL (2.76->20)
== END 2023-08-04 08:44 | disposition home or self-care (01) ==
PROVIDERS: PCP Internal Medicine; Visit Provider Internal Medicine
DX: R91.1 Solitary pulmonary nodule (principal); I10 Essential (primary) hypertension; M54.2 Cervicalgia; Z98.84 Bariatric surgery status; Z13.820 Encounter for screening for osteoporosis; Z12.31 Encounter for screening mammogram for malignant neoplasm of breast
CPT/HCPCS: 36415; 71250; 80053; 80061; 82306; 82607; 82746; 83735; 84439; 84443; 85025

== ENCOUNTER 2023-08-25 08:33 | Outpatient (CLI) | payer BC, SELFPAY ==
--- NOTE | ~2023-08-25 | CT_ITS ---
EXAMINATION: CT brain wo con DATE: 08/25/2023 09:09 INDICATION: Dizziness TECHNIQUE: Computed tomography (CT) of the head was performed without intravenous contrast. Sagittal and coronal reconstructions were performed. The mA was adjusted according to patient size. Iterative reconstruction technique was employed. The dose-length product was 529.67 mGy-cm. COMPARISON: None FINDINGS: No acute intracranial hemorrhage, acute infarction or abnormal extra axial fluid collection. Ventricl es are normal and symmetric. No mass/mass effect. The orbits, paranasal sinuses and mastoid air cells are normal. IMPRESSION: 1. Normal head CT. No acute intracranial process. Reviewed, dictated and finalized at location A.
--- NOTE | ~2023-08-25 | US_ITS ---
Limited Abdominal Sonogram: Real-time sonographic imaging of the right upper quadrant was performed. Clinical History: Abnormal liver enzymes Findings: The liver may be minimally echogenic, with no evidence of mass lesion or bile duct dilatat ion. Main portal vein demonstrates normal direction of flow. The gallbladder is absent, compatible pr ior cholecystectomy. The common bile duct measures 5 mm. The visualized pancreas, aorta, and IVC are unremarkable. Impression: Possible mild fatty infiltration of liver. Reviewed, dictated and finalized at location M. Impression: Possible mild fatty infiltration of liver.
== END 2023-08-25 08:34 | disposition home or self-care (01) ==
PROVIDERS: PCP Internal Medicine; Visit Provider Internal Medicine
DX: R74.01 Elevation of levels of liver transaminase levels (principal)
CPT/HCPCS: 70450; 76705

== ENCOUNTER 2024-01-05 08:21 | Outpatient (CLI) | payer BC, SELFPAY ==
--- NOTE | ~2024-01-05 | MM_ITS ---
EXAMINATION: MM screening jean-pierre BI w delmy HISTORY: Screening TECHNIQUE: Craniocaudal and mediolateral oblique 3-D tomosynthesis images were obtained and synthetic 2-D images were generated. CAD analysis was submitted and interpreted. COMPARISON: No prior mammogram is available for comparison at this institution. BREAST PARENCHYMAL COMPOSITION: There are scattered areas of fibroglandular density. FINDINGS: There is no evidence of suspicious mass, calcification, or architectural distortion to sugg est malignancy in either breast. There has been no suspicious interval change. IMPRESSION: 1. No mammographic evidence of malignancy. 2. Recommend routine screening mammography in one year. BI-RADS Category 1: Negative Reviewed, dictated and finalized at location B.
--- NOTE | ~2024-01-05 | DEXA_ITS ---
Bone Density Report Name: JORGE ALBERTO GOMEZ Age: 53 Sex: Female Ethnicity: White Date of : 1970 Indication: postmenopausal; screening for osteoporosis; Referring Provider: JUAN, FERMIN Study: Bone densitometry was performed. Exam Date: January 05, 2024 Accession number: [id number] Bone Density: Region BMD T-score Z-score Classification AP Spine(L1-L4) 0.881 -1.5 -0.5 Osteopenia Femoral Neck (Left) 0.739 -1.0 0.0 Normal Total Hip (Left) 0.816 -1.0 -0.4 Normal Femoral Neck (Right) 0.792 -0.5 0.4 Normal Total Hip (Right) 0.928 -0.1 0.5 Normal Total Hip Mean 0.872 -0.6 0.1 Normal World Health Organization criteria for BMD impression classify patients as: Normal (T-score at or above -1.0), Osteopenia (T-score between -1.0 and -2.5), or Osteoporosis (T-score at or below -2.5). 10-year Fracture Risk(1): Major Osteoporotic Fracture 4.4% Hip Fracture 0.2% Reported Risk Factors: [place] (), Neck BMD=0.739, BMI=45.4 (1) FRAX(R) Version 3.08. Fracture probability calculated for an untreated patient. Fracture probability may be lower if the patient has received treatment. Clinical Information Provided by Patient: Has used the following medications: Vitamin D, Calcium Patient maximum height was 64.75 No regular weight bearing exercise Drinks caffeinated beverages Onset of menses at age 11 Number of children 2 Missed period for more than 6 months in a row Impression: The patient has low bone mass, based on the Total Spine T-score. The patient has an estimated ten-year risk of hip fracture of 0.2% and an estimated ten-year risk of major fracture of 4.4%, based on the WHO FRAX algorithm. Discussion: BONE DENSITY IS LOW AT ONE OR MORE SKELETAL SITES. This patient's lowest T-score is low at one or more skeletal sites. It meets the World Health Organization's (WHO) criteria for ?low bone mass? (T-score between -1.0 and -2.5). The patient's 10-year risk of fracture as calculated by FRAX is less than the threshold where pharmacological therapy is recommended by the National Osteoporosis Foundation (NOF). However, all treatment decisions require clinical judgment and consideration of individual patient factors, including patient preferences, comorbidities, previous drug use, risk factors not captured in the FRAX model (e.g., frailty, falls, vitamin D deficiency, increased bone turnover, interval significant decline in bone density) and possible under or overestimation of fracture risk by FRAX. The patient should follow a healthful lifestyle (good nutrition with adequate calcium and vitamin D, and appropriate weight-bearing exercise). Follow-Up: Consider repeating this study in 2 to 3 years to reassess this patient's status, or sooner if there is some new clinical indication.
== END 2024-01-05 08:22 | disposition home or self-care (01) ==
PROVIDERS: PCP Internal Medicine; Visit Provider Internal Medicine
DX: Z12.31 Encounter for screening mammogram for malignant neoplasm of breast (principal); Z13.820 Encounter for screening for osteoporosis; M85.88 Other specified disorders of bone density and structure, other site
CPT/HCPCS: 77063; 77067; 77080

== ENCOUNTER 2024-12-28 17:24 | Emergency (ER) | payer BC, SELFPAY ==
--- NOTE | 2024-12-28 17:25 | ED_ITS ---
HPI - URI/Sore Throat General Chief Complaint: Upper Respiratory Infection Stated Complaint: strep symptoms Time Seen by Provider: 12/28/24 17:29 Source: patient, RN notes reviewed and old records reviewed Mode of arrival: ambulatory Limitations: no limitations History of Present Illness HPI Narrative: 54-year-old female presents to the [facility] with complaints of a sore throat, reports that she has been exposed to strep throat Symptoms for 2 days. Has taken Tylenol Related Data Home Medications ?Medication ?Instructions ?Recorded ?Confirmed ?Last Taken ?Type losartan 50 mg tablet 50 mg PO DAILY 09/29/2211/0910/08/22 History atorvastatin 40 mg tablet mg PO 12/01/23 12/06/24 Unkn own History Allergies Allergy/AdvReac Type Severity Reaction Status Date / Time diphenhydramine (From Allergy Mild Swelling Verified 12/28/24 19:01 ZzzQuil) bee venom protein (honey bee) Allergy Anaphylaxis Verified 12/06/24 08:20 Review of Systems Review of Systems: All systems reviewed & are unremarkable except as noted in HPI and below Constitutional: Constitutional: Reports no additional constitutional complaints ENT: Reports as per HPI and Reports sore throat Cardiovascular: Cardiovascular: Reports no additional cardiovascular complaints, Denies chest pain and Denies dyspnea Respiratory: Respiratory: Reports no additional respiratory complaints, Denies chest congestion, Denies cough and Denies dyspnea Musculoskeletal: Musculoskeletal: Reports no additional musculoskeletal complaints Integumentary/Breasts: Skin/Breast: Reports system reviewed and no additional complaints, except as docu PMFSH Past Medical History Medical History Skin cancer Hypertension GERD (gastroesophageal reflux disease) Right-sided thoracic back pain Epigastric pain Kidney stones Surgical History Surgical History Status post surgical removal of malignant neoplasm of skin History of cholecystectomy H/O gastric bypass History of lithotripsy Family History Family History Other Cancer Diabetes mellitus Heart disease Hypertension Tuberculosis Social History Social History Smoking status: Former smoker Tobacco type: cigarettes Alcohol intake: never Substance use: never Substance use type: does not use Current Housing: Decline to Answer Concerned About Future Housing: Decline to Answer Difficulty Paying Gas/Electric Bills: Decline to Answer Difficulty Paying for Meds: Decline to Answer Currently Unemployed: Decline to Answer Education: Decline to Answer Difficulty w/ Childcare or Family Care: Decline to Answer Living arrangements: with family Occupation/Education: occupation Gender identity (if verbalized by the patient): Female Sexual Orientation (if Verbalized by the Patient): Straight or Heterosexual Spiritual care concerns: No Comments At the time of my signature, I reviewed and agree with the nursing past medical, surgical, social, and family history. There is no relevant family history pertinent to the patient complaint. Exam Const: General: cooperative, healthy appearing, comfortable, no acute distress, well developed, alert and well nourished Nutritional Appearance: well nourished and obese Orientation/consciousness: patient oriented x3 Limitations: no limitations HENMT: Head: normal to inspection Ears: hearing grossly normal bilaterally, external ears normal, TM's normal bilaterally, EAC's normal, mastoids normal and no periauricular adenopathy Mouth: Yes Normal oral and palatal mucosa present, Yes lip normal, Yes tongue normal and Yes moist mucous membranes Throat: posterior oropharynx normal, uvula midline and no uvular edema Eyes: General: appearance normal, both eyes and all related structures Alignment and Position: alignment normal Neck: Neck: normal visual inspection, full ROM, no lymphadenopathy and no meningeal signs Chest: Chest palpation & inspection: normal inspection of the chest Resp: Effort & Inspection: normal respiratory effort and able to speak in complete sentences Auscultation: clear to auscultation bilaterally, no crackles, no rales, no rhonchi and no wheezes Cardio: Rate: regular rate Skin: General skin exam: normal color and no rashes or lesions noted Neuro: General: patient oriented x3, gait normal, moves all extremities and no meningeal signs Cognition (Neuro): normal cognition Speech: normal speech Gait exam (Neuro): Normal gait present Extrem: General: normal to inspection, full ROM, capillary refill normal and normal gait Psych: Appearance: grossly normal and well kempt Mental Status: mental status grossly normal Speech and movement: Normal speech and movement present and Clear speech present Affect: normal affect Attitude: cooperative Course Course Level of Care: Express Care Visit Vital Signs Vital signs: Vital Signs Temperature 97.8 F 12/28/24 17:31 Pulse Rate 97 12/28/24 17:31 Respiratory Rate 18 12/28/24 17:31 Blood Pressure 131/90 12/28/24 17:31 Pulse Oximetry 99 12/28/24 17:31 Oxygen Delivery Room Air 12/28/24 17:31 Temperature 97.8 F 12/28/24 17:31 Pulse Rate 97 12/28/24 17:31 Respiratory Rate 18 12/28/24 17:31 Blood Pressure 131/90 12/28/24 17:31 Pulse Oximetry 99 12/28/24 17:31 Oxygen Delivery Room Air 12/28/24 17:31 Reviewed MDM - URI/Sore Throat MDM Narrative Medical decision making narrative: Patient sitting in exam room. Patient is nontoxic, vitals stable. Patient presents with a sore throat. Strep test negative, will culture Patient appropriate for outpatient treatment with close follow-up Discharge instructions reviewed with patient, as well as provided in writing per nursing staff. The instructions also include specific and strict return/GO TO THE ER as well as f/u information. All questions have been answered, and the patient deny any further questions with discharge and discharge plan. Some parts of this dictation were generated by voice recognition software and may contain typographical and/or grammatical inaccuracies. Differential Diagnosis Differential diagnosis: Likely upper respiratory infection, otitis media, sinusitis, viral infection, bronchitis, influenza and pharyngitis Lab Data Labs: Lab Results 12/28/24 Range/Units 17:45 POC Grp A Strep Screen Negative (Negative) Reviewed Critical Care Time Critical Care Time Critical Care Time: No Discharge Plan Discharge Clinical Impression: PND (post-nasal drip) Pharyngitis Qualifiers: Pharyngitis/tonsillitis etiology: unspecified etiology Qualified Code(s): J02.9 - Acute pharyngitis, unspecified Patient Disposition: Home Condition: Stable Instructions: Antibiotic Form, Pharyngitis (ED), Postnasal Drip (DC) Additional Instructions: Your rapid strep swab was negative today at [facility]. A throat culture will be sent to the laboratory for further testing. If the test is positive, you will receive a phone call within 48 hours and an appropriate antibiotic will be initiated at that time. Your symptoms are likely due to a viral illness, which is not treated with antibiotics. Typically viral infections last 7-10 days, can linger for couple of weeks. It is very important to treat your symptoms. Drink plenty of water, Gatorade, Pedialyte, ice pops or Jell-O. -Alternate Tylenol and Motrin per package directions for fever or pain. You can alternate every 4 hours -Antihistamine medication such as Zyrtec/Claritin/Allie during the day can help improve symptoms. -doing daily nasal irrigations can help relieve pressure your sinuses. Things like a Neti pot -Use Flonase twice a day for 5 days then daily to help reduce the inflammation and dry up your sinuses. -You can also use Mucinex. Be sure to drink plenty of water with this medication at least 8 ounces with every dose and it is important to drink 8 to 10 glasses of water per day. Water is a natural decongestant -Eat and drink things that are easy to swallow, like tea or soup, or popsicles. -Oral rinses such as: Salt water gargles and/or may use topical anesthetic (eg. Chloraseptic spray) or lozenges to relieve dryness or throat pain). -Frequent hand washing or hand supervisor grain and yeast plants is one of the best ways to prevent spread of infection. -Using a vaporizer or humidifier at night will also help thin secretions and help with coughing up phlegm. -Follow up with primary care provider in 7-10 days if condition is not improving - For new or worsening symptoms go directly to the nearest ER Patient Language: Croatian Prescriptions: No Action atorvastatin 40 mg tablet PO losartan 50 mg tablet 50 mg PO DAILY Follow-up/Referrals: Adrian,MD [facility] [Primary Care Provider, Unknown] - 2 Weeks Time of Disposition: 17:43
[2024-12-28 17:31] VITALS: BP 131/90; PULSE 97; RESP 18; TEMP 36.6; O2SAT 99
[2024-12-28 17:49] LABS: EDSTREPNEGPOS1 Negative (Negative)
== END 2024-12-28 17:45 | disposition home or self-care (01) ==
PROVIDERS: Emergency Provider Nurse Practitioner; PCP Internal Medicine
DX: R09.82 Postnasal drip (principal); J02.9 Acute pharyngitis, unspecified; I10 Essential (primary) hypertension; K21.9 Gastro-esophageal reflux disease without esophagitis; Z85.828 Personal history of other malignant neoplasm of skin; Z98.84 Bariatric surgery status; Z87.891 Personal history of nicotine dependence
CPT/HCPCS: 87081; 87880; 99213; G0463